=== PATIENT | female | born 1935 | race African-American/Black ===

== ENCOUNTER 2018-11-07 08:59 | Emergency (ER) | payer OTHER ==
[~2018-11-07] VITALS: Ht 162.6 cm; Wt 72.0 kg
[~2018-11-07 08:59] MED LIST: ASPIRIN PO; HYDROCHLOROTHIAZIDE PO; LOSA50TA20 PO; OMEPRAZOLE PO; POTASSIUM; SIMVASTATIN PO
[2018-11-07 09:26] LABS: HEMATOCRIT. 33.6 % (36.0-48.0); HEMOGLOBIN. 11.1 g/dL (12.0-16.0); MEAN CORPUSCULAR HEMOGLOBIN 27.2 pg (28.0-32.0); MEAN CORPUSCULAR VOLUME 82.5 fL (81.0-99.0); MEAN PLATELET VOLUME 7.6 fl (7.4-10.4); PLATELET 186 x1000/uL (130-400); RED BLOOD CELL COUNT 4.08 mill/uL (4.2-5.4)
[2018-11-07] MEDS ORDERED: ASPIRIN 81MG TABLET PO ONE (09:30)
[2018-11-07 09:33] LABS: CHLORIDE 108 mEq/L (98-107)
[2018-11-07 09:43] LABS: INR 3.1; PARTIAL THROMBOPLASTIN TIME 58.1 sec (23.4-31.0); PROTHROMBIN TIME 30.4 sec (9.6-11.0)
[2018-11-07 11:10] VITALS: BP 150/80
[2018-11-07 11:31] LABS: PLATELET ESTIMATE NORMAL
== END 2018-11-07 11:37 | disposition short-term general hospital (02) ==
LOC: ER 09:08 → CANBEDREQ 09:11 → EDBEDREQ 09:11 → EDBEDREQSVC 09:11 → EDBEDREQTM 09:11 → ER 11:37 → CANBEDREQ 12:24
DX: R07.9 Chest pain, unspecified (principal); I10 Essential (primary) hypertension; D72.819 Decreased white blood cell count, unspecified; E87.8 Other disorders of electrolyte and fluid balance, not elsewhere classified; D64.9 Anemia, unspecified; E78.00 Pure hypercholesterolemia, unspecified; I48.91 Unspecified atrial fibrillation; Z88.1 Allergy status to other antibiotic agents; Z88.8 Allergy status to other drugs, medicaments and biological substances; Z79.899 Other long term (current) drug therapy
CPT/HCPCS: 36415; 71045; 83880; 84484; 93005; 99285